=== PATIENT | female | born 1945 | race Caucasian/White ===

== ENCOUNTER → 2016-09-29 | Outpatient (CLI) | payer OTHER | END | disposition home or self-care (01) | LOC: PCVCCLINIC 13:31 | PROVIDERS: ATTEND Internal Medicine | CPT/HCPCS: 80061 ×2; 93005 ×2; G0463 ×2 ==

== ENCOUNTER → 2016-11-11 | Outpatient (CLI) | payer OTHER | END | disposition home or self-care (01) | LOC: PCVCIMAG 11:20 | PROVIDERS: ATTEND Internal Medicine | DX: R55 Syncope and collapse (principal); E78.00 Pure hypercholesterolemia, unspecified; I87.2 Venous insufficiency (chronic) (peripheral) | CPT/HCPCS: 80061; 93005; 93306; G0463 ==